=== PATIENT | female | born 1985 | race Caucasian/White ===

== ENCOUNTER 2021-05-27 08:41 | Outpatient (CLI) | payer OTHER | END 2021-05-27 08:42 | disposition home or self-care (01) | LOC: BICMRI 08:41 | PROVIDERS: ATTEND Family Medicine | DX: M25.531 Pain in right wrist (principal); R10.2 Pelvic and perineal pain; M19.031 Primary osteoarthritis, right wrist; R93.7 Abnormal findings on diagnostic imaging of other parts of musculoskeletal system | CPT/HCPCS: 76856 ==